=== PATIENT | male | born 1955 | race Caucasian/White ===

== ENCOUNTER 2021-11-25 10:14 | Emergency (ER) | payer SELFPAY ==
--- NOTE | ~2021-11-25 | CT_ITS ---
EXAMINATION: CT soft tissue neck w con DATE: 11/25/2021 13:28 INDICATION: Submandibular swelling secondary to dental abscess. TECHNIQUE: Computed tomography (CT) of the neck was performed with 75 mL Omnipaque-350 intravenous co ntrast. Automated exposure control and iterative reconstruction technique were employed. The dose-susu gth product was 519.42 mGy-cm. COMPARISON: None FINDINGS: There are multiple dental restorations. There are couple lucencies with sclerotic margins along the l eft mandible at the site of a couple absent teeth. There is a large peripherally enhancing abscess in the left submandibular/sublingual space which measures 3.2 cm craniocaudally by 4.3 cm left to right and 3.8 cm AP. There are several mildly enlarged bilateral likely reactive submandibular lymph nodes . Orbits are normal. Leftward deviation of the nasal septum. Small amount of bubbly mucus layering de pendently in the right maxillary sinus. Visualized portions of the brain is unremarkable. Bilateral p arotid and submandibular glands are normal. Thyroid gland is normal. No pathologically enlarged cervi yunior lymphadenopathy. Dependent groundglass opacity in the bilateral upper lungs likely related to ate lectasis and expiratory phase of imaging. Moderate to severe cervical spondylosis. IMPRESSION: 1. 4.3 x 3.2 x 3.8 cm peripherally enhancing abscess in the sublingual/left submandibular space with mild likely reactive bilateral submandibular lymphadenopathy. Reviewed, dictated and finalized at location A. IMPRESSION: 1. 4.3 x 3.2 x 3.8 cm peripherally enhancing abscess in the sublingual/left sub mandibular space with mild likely reactive bilateral submandibular lymphadenopa thy.
[2021-11-25 10:22] VITALS: BP 157/95; PULSE 75; RESP 18; TEMP 36.7; O2SAT 97
[2021-11-25 10:40] LABS: Basophils Percent Auto 0.3 % (0.2-1.2); Eosinophils Absolute Auto 0.2 K/mm3 (0-0.3); Eosinophils Percent Auto 1.8 % (0-4.4); Hematocrit 42.5 % (42.0-52.0); Hemoglobin 13.9 g/dL (14.0-18.0); Immature Granulocyte Absolute 0.06 K/mm3 (0.00-0.031); Immature Granulocyte Percent A 0.5 % (0-0.5); Lymphocytes Percent Auto 18.3 % (18.3-44.2); Mean Corpuscular HGB Conc 32.7 g/dl (32-36); Mean Corpuscular Hemoglobin 30.5 pg (26-34); Mean Corpuscular Volume 93.2 fl (80-100); Mean Platelet Volume 9.3 fl (7.4-10.4); Monocytes Absolute Auto 1.3 K/mm3 (0.1-0.6); Monocytes Percent Auto 9.6 % (2.6-8.5); Neutrophils Absolute Auto 9.1 K/mm3 (1.3-6.7); Neutrophils Percent Auto 69.5 % (45.5-73.1); Platelet Count Result 408 k/mm3 (150-375); Red Blood Count 4.56 M/mm3 (4.6-6.20); Red Cell Distribution Width 13.3 % (11.5-14.5); White Blood Count 13.1 K/mm3 (4.5-10.0)
[2021-11-25 10:50] LABS: Anion Gap 8 mmol/L (8-16); Blood Urea Nitrogen 11 mg/dL (9-20); Calcium 9.2 mg/dL (8.4-10.2); Carbon Dioxide 23 mmol/L (22-30); Chloride 103 mmol/L (98-107); Estimated CRCL calculation 79 ml/min; Estimated Glomerular Filt Rate > 60; Glucose 120 mg/dL (65-110); Potassium 4.6 mmol/L (3.4-5.0); Sodium 134 mmol/L (137-145)
[2021-11-25 11:30] VITALS: BP 120/79; PULSE 65; RESP 18; O2SAT 95
--- NOTE | 2021-11-25 11:55 | PC.NURSE ---
pts out to desk to ask if pt was going to be seen by provider. charge hand aware.
--- NOTE | 2021-11-25 12:29 | ED.GENADULT ---
HPI - General Adult General Chief complaint: Dental/Oral Stated complaint: swollen jaw - abscess tooth Time Seen by Provider: 11/25/21 11:18 Source: patient, family and RN notes reviewed Mode of arrival: ambulatory Limitations: no limitations History of Present Illness HPI narrative: 66-year-old male presenting to the emergency department for evaluation of worsening dental pain and facial swelling. Patient followed up with a dentist on Saturday and had an abscessed tooth removed. Patient was started on Augmentin but states that since the removal he has had increased pain and facial swelling. Patient denies any difficulty breathing but does report increased pain with swallowing. Patient is a smoker. Related Data Home Medications Medication Instructions Recorded Confirmed amoxicillin-pot clavulanate 1 tablet PO Q12H 11/25/21 [Augmentin] carvedilol 3.125 mg PO BID 11/25/21 ramipril 2.5 mg PO DAILY 11/25/21 Allergies Allergy/AdvReac Type Severity Reaction Status Date / Time No Known Allergies Allergy Mild Verified 11/25/21 10:25 Review of Systems Review of Systems: CONSTITUTIONAL: Denies fever, chills, or sweats. EYES: Denies visual changes, redness, or discharge. ENT: Increased facial swelling and pain CARDIOVASCULAR: Denies chest pain, palpitations, or edema. RESPIRATORY: Denies cough or dyspnea. GASTROINTESTINAL: Denies abdominal pain, nausea, vomiting, or diarrhea. GENITOURINARY: Denies dysuria or hematuria. SKIN: Denies rash or itching. MUSCULOSKELETAL: Denies back pain, joint pain, or myalgia. NEUROLOGIC: Denies headache, numbness, or weakness. PSYCHIATRIC: Denies anxiety or depression. [facility] Family History Family History (Updated 02/24/19 @ 16:03 by DOCTOR UNKNOWN) Sibling Diabetes mellitus Father Family history of cardiovascular disease Mother Family history of cardiovascular disease Other Family history of arthritis Hypertension Social History Social History Smoking status: Heavy tobacco smoker Second hand tobacco smoke exposure: Yes Alcohol intake: never Exam Narrative: APPEARANCE: Well appearing, no pain, no distress, well-nourished. HEAD: normocephalic, atraumatic. EYES: PERRLA/EOMI, conjunctivae clear. NOSE: Normal no drainage EARS:TMS clear with good light reflex. THROAT: Submandibular swelling and tenderness. Normal posterior pharynx NECK: Supple. No adenopathy, no masses. RESPIRATORY: Airway patent, respirations nonlabored. Clear to auscultation bilaterally, no rales, rhonchi, wheezing. CARDIOVASCULAR: Regular rate and rhythm without murmurs rubs or gallops. SKIN: Warm, dry. Normal Color Course Course Emergency Course: Patient was started on 600 mg of IV clindamycin. Blood culture pending. No ENT on-call for [facility]. Patient prefers to go to [place]. Case was discussed with both the ENT and with the emergency room physician and patient was accepted for transfer to the ED. Patient was updated on the plan for transfer. All questions concerns were addressed. Patient was stable at time of transfer. Vital Signs Vital signs: Vital Signs Temperature 98.0 F 11/25/21 10:22 Pulse Rate 75 11/25/21 10:22 Respiratory Rate 18 11/25/21 10:22 Blood Pressure 157/95 H 11/25/21 10:22 Pulse Oximetry 97 11/25/21 10:22 Temperature 98.0 F 11/25/21 10:22 Pulse Rate 70 11/25/21 15:25 Respiratory Rate 16 11/25/21 15:25 Blood Pressure 121/90 11/25/21 15:25 Pulse Oximetry 97 11/25/21 15:25 Medical Decision Making Vital Signs Vital Signs: Vital Signs Temperature 98.0 F 11/25/21 10:22 Pulse Rate 75 11/25/21 10:22 Respiratory Rate 18 11/25/21 10:22 Blood Pressure 157/95 H 11/25/21 10:22 Pulse Oximetry 97 11/25/21 10:22 Temperature 98.0 F 11/25/21 10:22 Pulse Rate 70 11/25/21 15:25 Respiratory Rate 16 11/25/21 15:25 Blood Pressure 121/90 11/25/21 15:25 Pulse Oximetry 97 11/25/21 15:25 Lab Data Lab
[2021-11-25 12:30] VITALS: BP 144/93; PULSE 68; RESP 17; O2SAT 97
[2021-11-25] MEDS: SODIUM CHLORIDE 0.9% IV 1,000 ML 999 ML IV CONT (12:40)
[2021-11-25] MEDS: HYDROmorphone HCL INJ (*CRX) 1 MG/ML SYR IV PUSH ×2 (12:41→14:49)
[2021-11-25 13:30] VITALS: BP 138/80; PULSE 70; RESP 18; O2SAT 94
[2021-11-25] MEDS: CLINDAMYCIN 600 MG/D5W 50 ML 600 MG/50 ML PIGGYBACK 100 MG IVPB (13:35)
--- NOTE | 2021-11-25 13:36 | PC.NURSE ---
return from ct. pt states pain decreased to 4/10. antiobitic hung.
[2021-11-25 14:30] VITALS: BP 147/82; PULSE 69; RESP 17; O2SAT 92
--- NOTE | 2021-11-25 15:09 | PC.NURSE ---
[place] [facility] 5hr AKHIL Mcmullen Mem - No Truck Fannie No Truck Win No Truck
[2021-11-25 15:15] LABS: SARS-CoV-2 RNA PCR Negative
[2021-11-25 15:25] VITALS: BP 121/90; PULSE 70; RESP 16; O2SAT 97
== END 2021-11-25 15:38 | disposition short-term general hospital (02) ==
PROVIDERS: Emergency Medicine; Emergency Provider Emergency Medicine
DX: K12.2 Cellulitis and abscess of mouth (principal); F17.200 Nicotine dependence, unspecified, uncomplicated; Z20.822 Contact with and (suspected) exposure to COVID-19
CPT/HCPCS: 36415; 70491; 80048; 85025; 87040; 96361; 96365; 96375; 96376; 99285; C9803; J1170; J7030; Q9967; U0003; U0005

== ENCOUNTER 2023-05-13 13:48 | Outpatient (CLI) | payer OTHER, SELFPAY ==
[2023-05-13 19:43] LABS: Alanine Aminotransferase 20 U/L (6-50); Albumin Level 4.5 g/dL (3.5-5.1); Alkaline Phosphatase 81 U/L (38-126); Anion Gap 8 mmol/L (8-16); Aspartate Amino Transferase 34 U/L (17-59); Bilirubin,Total 0.6 mg/dL (0.2-1.3); Blood Urea Nitrogen 9 mg/dL (9-20); Calcium 9.4 mg/dL (8.4-10.2); Carbon Dioxide 28 mmol/L (22-30); Chloride 102 mmol/L (98-107); Cholesterol 205 mg/dL (0-200); Estimated Glomerular Filt Rate > 60; Glucose 96 mg/dL (65-110); HDL Direct 27 mg/dL; Potassium 3.9 mmol/L (3.4-5.0); Sodium 138 mmol/L (137-145); Triglycerides 226 mg/dL (<150)
[2023-05-13 19:54] LABS: LDL Cholesterol Direct 136 mg/dL
[2023-05-13 20:12] LABS: Prostate Specific Antigen 0.5 ng/mL (< OR = 4.0)
== END 2023-05-13 13:49 | disposition home or self-care (01) ==
LOC: ANHGOSHLAB 13:49
PROVIDERS: PCP Family Medicine; Visit Provider Family Medicine
DX: Z12.5 Encounter for screening for malignant neoplasm of prostate (principal); Z13.220 Encounter for screening for lipoid disorders; Z13.228 Encounter for screening for other metabolic disorders
CPT/HCPCS: 36415; 80053; 80061; 84153; G0103

== ENCOUNTER 2023-09-20 13:12 | Outpatient (CLI) | payer MEDICARE, SELFPAY ==
--- NOTE | ~2023-09-20 | US_ITS ---
EXAMINATION: US aorta [facility] DATE: 09/20/2023 14:02 INDICATION: Encounter for screening for cardiovascular disorders . Nicotine dependence. TECHNIQUE: Grayscale, color Doppler, and pulsed Doppler images of the aorta and common iliac arteries were obtained. COMPARISON: None. FINDINGS: Region of the proximal aorta is obscured. The mid aorta measures 2.2 cm. The distal aorta measures 1. 9 cm. The right common iliac artery measures 8 mm. The left common iliac artery measures 8 mm. IMPRESSION: 1. Normal caliber abdominal aorta. Reviewed, dictated and finalized at location A. SIFIER OPERATOR
--- NOTE | ~2023-09-20 | CT_ITS ---
CT Scan of the Chest without Contrast: Clinical Indication: Lung cancer screening, current smoker Technique: Contiguous sections were acquired throughout the chest without intravenous contrast. Dose reduction technique was used on this scan by utilizing automated exposure control and iterative recon struction technique. The dose-length product (DLP) was 225.25 mGy-cm. Findings: There is no evidence of any significant mediastinal, hilar or axillary lymphadenopathy. The mediastin al soft tissues appear normal. There is no evidence of pleural or pericardial effusion. There are multiple subcentimeter groundglass nodules scattered in the upper lobes. Images through the upper abdomen reveal no abnormalities. Impression: Lung RADS 2: Benign appearance. [address] advised. Reviewed, dictated and finalized at location . NG VALIDATOR Impression: Lung RADS 2: Benign appearance. [address] advised.
== END 2023-09-20 13:13 | disposition home or self-care (01) ==
PROVIDERS: PCP Family Medicine; Visit Provider Family Medicine
DX: Z12.2 Encounter for screening for malignant neoplasm of respiratory organs (principal); F17.210 Nicotine dependence, cigarettes, uncomplicated; Z13.6 Encounter for screening for cardiovascular disorders
CPT/HCPCS: 71271; 76706

== ENCOUNTER 2024-02-20 07:45 | Outpatient (CLI) | payer MEDICARE, SELFPAY ==
--- NOTE | ~2024-02-20 | CT_ITS ---
Non-contrast CT scan of the Abdomen and Pelvis Clinical indication: Abdominal hernia Technique: 2.5 mm axial scans were obtained through the abdomen and pelvis without intravenous or or al contrast. Dose reduction technique was used on this scan by utilizing automated exposure control a nd iterative reconstruction technique. The dose-length product (DLP) was 1008.39 mGy-cm. Findings: Images through the lung bases reveal no abnormalities. There is no evidence of renal or ureteral calculi. The kidneys and the ureters are nondilated. The liver, spleen, pancreas, gallbladder, and adrenals appear normal.. There are atherosclerotic calc ifications of the aorta. There is no evidence of bowel obstruction. Images through the pelvis were performed. There is no evidence of ascites or lymphadenopathy. Urinary bladder unremarkable. No pelvic mass seen. No ascites. Impression: No hernia identified. No significant abnormality seen. Reviewed, dictated and finalized at [facility]. Impression: No hernia identified. No significant abnormality seen.
== END 2024-02-20 07:46 | disposition home or self-care (01) ==
PROVIDERS: PCP Family Medicine; Visit Provider Family Medicine
DX: K46.9 Unspecified abdominal hernia without obstruction or gangrene (principal)
CPT/HCPCS: 74176

== ENCOUNTER 2024-03-24 01:54 | Day surgery (SDC) | payer MEDICARE, SELFPAY ==
[2024-03-04 14:22] VITALS: BMI 31.5
[2024-03-24 10:32] VITALS: BP 131/71; PULSE 70; RESP 20; TEMP 36.1; O2SAT 97; BMI 30.9
[2024-03-24] MEDS: LACTATED RINGERS 1,000 ML 150 ML IV CONT (10:41)
--- NOTE | 2024-03-24 11:24 | WPDANESEPPF ---
Anes - Initial Pre Proc Eval Procedure: Operation Date: 03/24/24 11:30 Proposed Procedures p Esophagogastroduodenoscopy - Patrice King MD Date/Time: 03/24/24 11:24 Surgeon: Patrice King MD Pre Op Diagnosis: Dysphagia, unspecified Patient Data Age: 68 Gender: M Height: 1.75 m Weight: 94.9 kg Last Vital Signs Temp 97 F L 03/24/24 10:32 Pulse 70 03/24/24 10:32 Resp 20 03/24/24 10:32 BP 131/71 03/24/24 10:32 Pulse Ox 97 03/24/24 10:32 O2 Del Method Room Air 03/24/24 10:32 Allergies Allergy/AdvReac Type Severity Reaction Status Date / Time No Known Allergies Allergy Mild Verified 03/24/24 10:31 Home Medications Medication Instructions Recorded Confirmed Type carvedilol 3.125 mg tablet 3.125 mg PO BID 11/25/21 03/04/24 History ramipril 2.5 mg tablet 2.5 mg PO DAILY 11/25/21 03/04/24 History atorvastatin 20 mg tablet 20 mg PO DAILY #90 tabs 11/20/23 03/04/24 Rx tiotropium bromide 18 mcg capsule 1 cap inhalation DAILY #60 02/11/24 03/04/24 Rx with inhalation device inhalations Patient hx anesthesia problems: none Family hx anesthesia problems: none Results Review: All pre-operative results and documents have been reviewed as part of the pre-operative evaluation. [facility] Family History Family History Sibling Diabetes mellitus Father Family history of cardiovascular disease Mother Family history of cardiovascular disease Other Family history of arthritis Hypertension Social History Social History Years smoked: 50 Smoking status: Current every day smoker Tobacco type: cigarettes Second hand tobacco smoke exposure: Yes Additional smoking assessment comments: pt smokes 1pk per day Alcohol intake: never Substance use: never Substance use type: does not use Do You Feel Safe in your Home?: Yes Lack of Transportation: No Lack of Food: Never True Current Housing: I Have Housing Concerned About Future Housing: No Difficulty Paying Gas/Electric Bills: No Currently Unemployed: No Education: Trade/Vocational Certificate Difficulty w/ Childcare or Family Care: No Living arrangements: with family Occupation/Education: retired Gender identity (if verbalized by the patient): Male Sexual Orientation (if Verbalized by the Patient): Straight or Heterosexual Spiritual care concerns: No Agree to blood products: Yes Anes - Eval Final PreProcedure Day of Procedure 03/24/24 11:24 Patient weight: obese Heart: regular rate and rhythm Lungs: clear to auscultation Airway: Mallampati scale class II Neurological: alert and oriented Last oral intake: >/= 8 hours ASA classification: III Emergent: no Anesthetic plan: proceed Anesthesia type and monitoring: general GIVS and standard monitoring Results Review: All pre-operative results and documents have been reviewed as part of the pre-operative evaluation. Informed Consent: The patient's anesthetic plan and its attendant risks and benefits were discussed with the patient/family/POA. Questions were solicited and answers provided to the satisfaction of the patient/family/POA.
--- NOTE | 2024-03-24 11:26 | PM.HPGS ---
History of Present Illness History of Present Illness Consent: Risks, benefits, and alternatives have been discussed and questions answered. Patient agrees to proceed with procedure. Chief complaint: Dysphagia, unspecified Narrative: Yobany Haddad is a 68 year old male with dysphagia to both solids and liquids for several months but getting worse, never had egd Review of Systems Review of Systems: All systems reviewed & are unremarkable except as noted in HPI and below PMFSH Past Medical History Medical History (Updated 03/24/24 @ 11:26 by Patrice King MD) Dysphagia Family History Family History Sibling Diabetes mellitus Father Family history of cardiovascular disease Mother Family history of cardiovascular disease Other Family history of arthritis Hypertension Social History Social History Years smoked: 50 Smoking status: Current every day smoker Tobacco type: cigarettes Second hand tobacco smoke exposure: Yes Additional smoking assessment comments: pt smokes 1pk per day Alcohol intake: never Substance use: never Substance use type: does not use Do You Feel Safe in your Home?: Yes Lack of Transportation: No Lack of Food: Never True Current Housing: I Have Housing Concerned About Future Housing: No Difficulty Paying Gas/Electric Bills: No Currently Unemployed: No Education: Trade/Vocational Certificate Difficulty w/ Childcare or Family Care: No Living arrangements: with family Occupation/Education: retired Gender identity (if verbalized by the patient): Male Sexual Orientation (if Verbalized by the Patient): Straight or Heterosexual Spiritual care concerns: No Agree to blood products: Yes Meds Home Medications and Allergies Home Medications Medication Instructions Recorded Confirmed Type carvedilol 3.125 mg tablet 3.125 mg PO BID 11/25/21 03/04/24 History ramipril 2.5 mg tablet 2.5 mg PO DAILY 11/25/21 03/04/24 History atorvastatin 20 mg tablet 20 mg PO DAILY #90 tabs 11/20/23 03/04/24 Rx tiotropium bromide 18 mcg capsule 1 cap inhalation DAILY #60 02/11/24 03/04/24 Rx with inhalation device inhalations Allergies Allergy/AdvReac Type Severity Reaction Status Date / Time No Known Allergies Allergy Mild Verified 03/24/24 10:31 Vital Signs Vital Signs - 24 hr 03/24/24 10:32 Temperature 97 F L Pulse Rate 70 Respiratory Rate 20 Blood Pressure 131/71 Pulse Oximetry 97 Oxygen Delivery Room Air Exam Const: General: comfortable and no acute distress HENMT: Face/Nose/Sinus: Normal nares present Eyes: General: appearance normal, both eyes and all related structures Neck: Neck: no JVD Resp: Auscultation: clear to auscultation bilaterally Cardio: Rate: regular rate Rhythm: regular rhythm GI: Inspection: non-distended GI Palp: Yes Soft to palpation Skin: General skin exam: normal color Neuro: General: gait normal Speech: normal speech Extrem: General: normal to inspection Psych: Mental Status: mental status grossly normal Assessment and Plan Assessment and plan (1) Dysphagia: Code(s): R13.10 - Dysphagia, unspecified Status: Acute Assessment and Plan: egd
[2024-03-24 11:43] VITALS: BP 131/79; PULSE 64; RESP 26; O2SAT 97
[2024-03-24 11:53] VITALS: BP 150/81; PULSE 70; RESP 24; O2SAT 98
[2024-03-24 12:03] VITALS: BP 133/78; PULSE 61; RESP 26; O2SAT 98
== END 2024-03-24 12:10 | disposition home or self-care (01) ==
PROVIDERS: PCP Family Medicine; Visit Provider Internal Medicine Gastroenterology
PROC: 0DJ08ZZ Inspection of Upper Intestinal Tract, Via Natural or Artificial Opening Endoscopic (ICD-10-PCS; CPT 43235; principal; 2024-03-24 11:30)
DX: K22.2 Esophageal obstruction (principal); K31.89 Other diseases of stomach and duodenum; K44.9 Diaphragmatic hernia without obstruction or gangrene; F17.210 Nicotine dependence, cigarettes, uncomplicated; E66.9 Obesity, unspecified; Z68.30 Body mass index [BMI] 30.0-30.9, adult; Z82.49 Family history of ischemic heart disease and other diseases of the circulatory system
CPT/HCPCS: 43249; 43239; 88305; C1726; J2704; J7120

== ENCOUNTER 2024-04-01 08:51 | Outpatient (CLI) | payer MEDICARE, SELFPAY ==
--- NOTE | ~2024-04-01 | US_ITS ---
US arterial ankle brachial ind INDICATION: Atherosclerosis. TECHNIQUE: Segmental pressures and plethysmographic and Doppler waveforms of the brachial and lower e xtremity arteries were obtained. COMPARISON: None. FINDINGS: Right and left brachial artery pressures of 123 mm Hg and 127 mm Hg, respectively, are concordant (no rmal difference <= 30 mmHg). The right ankle-brachial index (HERI) is 23 (normal >= 0.9-1.0). The right great toe-brachial index (T BI) is 0.34 (normal >= 0.60). The left HERI is 0.67. The left TBI is 0.36. IMPRESSION: 1. Diminished bilateral ankle and toe brachial indices consistent with mild-moderate peripheral arter ial disease bilaterally. Reviewed, dictated and finalized at location B. IMPRESSION: 1. Diminished bilateral ankle and toe brachial indices consistent with mild-mod erate peripheral arterial disease bilaterally.
== END 2024-04-01 08:52 | disposition home or self-care (01) ==
PROVIDERS: PCP Family Medicine; Visit Provider Family Medicine
DX: I73.9 Peripheral vascular disease, unspecified (principal); R25.2 Cramp and spasm; I25.10 Atherosclerotic heart disease of native coronary artery without angina pectoris
CPT/HCPCS: 93922

== ENCOUNTER 2024-07-30 10:00 | Outpatient (RCR) | payer MEDICARE, SELFPAY | END 2024-07-30 11:04 | disposition home or self-care (01) | LOC: ANHCPREHAB 10:00 | PROVIDERS: PCP Family Medicine; Visit Provider Family Medicine | DX: I70.213 Atherosclerosis of native arteries of extremities with intermittent claudication, bilateral legs (principal) | CPT/HCPCS: 93668; 93798 ==

== ENCOUNTER 2025-02-02 11:26 | Outpatient (CLI) | payer MEDICARE, SELFPAY ==
--- OUTSIDE RECORDS SUMMARY | 2025-02-02 11:29 | XMS_ITS | Referral Summary ---
Author Organization [facility] [address] Address [address] [place] [address] Care Team Providers Care Casing Trimmer Name Role Phone AdiCresencio kothari Primary Care Provider [phone] Allergies No known active allergies Medications carvediloL (COREG) 3.125 mg tablet TAKE 1 TABLET BY MOUTH TWICE DAILY WITH MEALS 180 tablet 3 0 Active ramipriL (ALTACE) 2.5 mg capsule TAKE 1 CAPSULE BY MOUTH EVERY DAY 90 capsule 2 2 Active acetaminophen 500 mg capsule Take 2 capsules (1,000 mg total) by mouth every 6 (six) hours 2 Active oxyCODONE (ROXICODONE) 5 mg immediate release tabletIndicatio ns:Pain Take 1 tablet (5 mg total) by mouth every 4 (four) hours as needed (Pain not relieved by tylenol) 10 tablet 2 Active Additional Information Patient not taking.Reported on 08/17/2024 aspirin 81 mg enteric coated tablet Take 1 tablet (81 mg total) by mouth daily Active atorvastatin (LIPITOR) 20 mg tablet Take 1 tablet (20 mg total) by mouth daily Active Active Problems Problem Noted Date Diagnosed Date Dental abscess 11/26/2021 Neck abscess 11/25/2021 LBBB (left bundle branch block) 05/07/2017 Dilated cardiomyopathy 05/07/2017 Social History Tobacco Use Types Packs/Day Years Used Date Smoking Tobacco: Every Day Cigarettes Smokeless Tobacco: Never Tobacco Cessation:Ready to Q uit: Not Asked; Counseling Given: Not Answered Comments:Smoking History Packs/day: 1 Packs Alcohol Use Standard Drinks/Week Comments No 0 (1 standard drink = 0.6 oz pur e alcohol) Sex and Gender Information Value Date Recorded Sex Assigned at Not on file Legal Sex Male 3:08 AM DELIVERY AIDE Gender Identity Not on file Sexual Orientation Not on file Last Filed Vital Signs Vital Sign Reading Time Taken Comments Blood Pressure 150/78 08/17/2024 8:39 AM DELIVERY AIDE Pulse 100 08/17/2024 8:39 AM DELIVERY AIDE Temperature 36.4 C (97.52 F) 11/29/2021 7:50 AM CDT Respiratory Rate 15 11/29/2021 7:50 AM CDT Oxygen Saturation 96% 08/17/2024 8:39 AM DELIVERY AIDE Inhaled Oxygen Concentration - - Weight 98.3 kg (216 lb 11.2 oz) 08/17/2024 8:39 AM DELIVERY AIDE Height 172.7 cm (5' 8) 08/17/2024 8:39 AM DELIVERY AIDE Body Mass Index 32.95 08/17/2024 8:39 AM DELIVERY AIDE Plan of Treatment Not on file Insurance [id number] [employer] MEDICARE HMO Advance Directives For more information, please contact: [phone] * Full Code (Latest Code Status on File) Date Activated Date Inactivated Comments 11/26/2021 5:24 AM 11/29/2021 5:47 PM Care Teams Casing Trimmer Relationship Specialty Start Date End Date Cresencio Ballesteros DO PCP - General Family Medicine 01/24/23
--- OUTSIDE RECORDS SUMMARY | 2025-02-02 11:29 | XMS_ITS | Clinical Summary ---
Author Organization [facility] [place] [address] Address [address] [place] [address] Care Team Providers Care Packing Machine Inspector Name Role Phone Adisaniya Cresencio ZHOU Primary Care Provider [phone] Allergies No known active allergies Medications carvediloL [...] bundle branch block) 05/07/2017 Dilated cardiomyopathy 05/07/2017 Family History Medical History Relation Name Comments Coronary artery disease Father 2 Walter nary Artery Bypass Graft; Heart attack Father 2 Myocardial Infa rction; Stroke Maternal Grandfather 2 Strok e; Heart attack Mother 2 Myocardial Infa rction; Stent Mother 2 Coronary Stent Placement; Relation Name Status Comments Father 1 Alive Father 2 Maternal Grandfather 1 Alive Maternal Grandfather 2 Mother 1 Alive Mother 2 Social History Tobacco Use Types Packs/Day Years [...] on file Legal Sex Male 3:08 AM CUSTOMER EXPERIENCE RETAIL CLERK Gender Identity Not on file Sexual Orientation Not on file Obstetrics History Last Filed Vital Signs Vital Sign Reading Time Taken Comments Blood Pressure 150/78 08/17/2024 8:39 AM CUSTOMER EXPERIENCE RETAIL CLERK Pulse 100 08/17/2024 8:39 AM CUSTOMER EXPERIENCE RETAIL CLERK Temperature 36.4 C (97.52 F) 11/29/2021 7:50 AM CDT Respiratory Rate 15 11/29/2021 7:50 AM CDT Oxygen Saturation 96% 08/17/2024 8:39 AM CUSTOMER EXPERIENCE RETAIL CLERK Inhaled Oxygen Concentration - - Weight 98.3 kg (216 lb 11.2 oz) 08/17/2024 8:39 AM CUSTOMER EXPERIENCE RETAIL CLERK Height 172.7 cm (5' 8) 08/17/2024 8:39 AM CUSTOMER EXPERIENCE RETAIL CLERK Body Mass Index 32.95 08/17/2024 8:39 AM CUSTOMER EXPERIENCE RETAIL CLERK Plan of Treatment Health Maintenance Due Date Last Done Comments Colon Cancer Screening-Colonoscopy 1957 Depression Screening 1957 Hepatitis C Screening 1957 Prostate Cancer Screening-PSA 1957 DTaP/Tdap/Td Vaccine (1 - Tdap) 1968 Hepatitis B Screening 1975 Pneumococcal vaccine 65+ (1 of 2 - PCV) 1976 Zoster Vaccine (1 of 2) 2007 Abdominal Aortic Aneurysm (AAA) Screen 2022 Well Visit 65+ 2022 Fall Risk Assessment 11/29/2022 11/29/2021 Influenza Vaccine (Season Ended) [id number] [place] [address] MEDICARE HMO Advance Directives For more information, please contact: [phone] * Full Code (Latest Code Status on File) Date Activated Date Inactivated Comments 11/26/2021 5:24 AM 11/29/2021 5:47 PM Care Teams Packing Machine Inspector Relationship Specialty Start Date End Date Cresencio Ballesteros DO PCP - General Family Medicine 01/24/23
[2025-02-02 16:57] LABS: Hematocrit 46.8 % (42.0-52.0); Hemoglobin 15.1 g/dL (14.0-18.0); Immature Granulocyte Percent A 0.3 % (0-0.5); Lymphocytes Absolute Auto 3.29 K/mm3 (0.9-3.2); Mean Corpuscular HGB Conc 32.3 g/dl (32-36); Mean Corpuscular Hemoglobin 30.8 pg (26-34); Mean Corpuscular Volume 95.3 fl (80-100); Nucleated Red Blood Cells Absolute Auto 0.000 K/mm3 (0.0-0.012); Nucleated Red Blood Cells Perc 0.0 % (0.0-0.2); Platelet Count Result 298 k/mm3 (150-375); Red Blood Count 4.91 M/mm3 (4.6-6.20); White Blood Count 10.1 K/mm3 (4.5-10.0)
== END 2025-02-02 11:27 | disposition home or self-care (01) ==
LOC: ANHGOSHLAB 11:27
PROVIDERS: PCP Internal Medicine; Visit Provider Internal Medicine
DX: D72.829 Elevated white blood cell count, unspecified (principal)
CPT/HCPCS: 36415; 85025

== ENCOUNTER 2025-02-15 09:19 | Outpatient (CLI) | payer MEDICARE, SELFPAY ==
--- NOTE | ~2025-02-15 | CT_ITS ---
CT Scan of the Chest without Contrast: Clinical Indication: Lung cancer screening, nicotine dependence Technique: Contiguous sections were acquired throughout the chest without intravenous contrast. Dose reduction technique was used on this scan by utilizing automated exposure control and iterative recon struction technique. The dose-length product (DLP) was 188.87 mGy-cm. COMPARISON: 09/20/2023 Findings: There is no evidence of any significant mediastinal, hilar or axillary lymphadenopathy. The mediastin al soft tissues appear normal. There is no evidence of pleural or pericardial effusion. The lungs are clear. No pulmonary nodules or infiltrates are noted. Images through the upper abdomen reveal no abnormalities. Impression: Lung RADS 1: Negative. [address] advised. Reviewed, dictated and finalized at location . Impression: Lung RADS 1: Negative. [address] advised.
== END 2025-02-15 09:20 | disposition home or self-care (01) ==
LOC: MICIMG 09:20
PROVIDERS: PCP Internal Medicine; Visit Provider Internal Medicine
DX: Z12.2 Encounter for screening for malignant neoplasm of respiratory organs (principal); Z87.891 Personal history of nicotine dependence
CPT/HCPCS: 71271

== ENCOUNTER 2025-02-19 08:04 | Outpatient (CLI) | payer MEDICARE, SELFPAY ==
--- OUTSIDE RECORDS SUMMARY | 2025-02-19 08:08 | XMS_ITS | Referral Summary ---
Author Organization [facility] [place] [address] Address [address] [place] [address] Care Team Providers Care Anode Worker Name Role Phone AdiCresencio kothari Primary Care Provider [phone] Allergies No known active allergies Medications carvediloL [...] on file Legal Sex Male 3:08 AM MANAGER CAR Gender Identity Not on file Sexual Orientation Not on file Last Filed Vital Signs Vital Sign Reading Time Taken Comments Blood Pressure 150/78 08/17/2024 8:39 AM MANAGER CAR Pulse 100 08/17/2024 8:39 AM MANAGER CAR Temperature 36.4 C (97.52 F) 11/29/2021 7:50 AM CDT Respiratory Rate 15 11/29/2021 7:50 AM CDT Oxygen Saturation 96% 08/17/2024 8:39 AM MANAGER CAR Inhaled Oxygen Concentration - - Weight 98.3 kg (216 lb 11.2 oz) 08/17/2024 8:39 AM MANAGER CAR Height 172.7 cm (5' 8) 08/17/2024 8:39 AM MANAGER CAR Body Mass Index 32.95 08/17/2024 8:39 AM MANAGER CAR Plan of Treatment Not on file Insurance [id number] [employer] MED[employer] HMO Advance Directives For more information, please contact: [phone] * Full Code (Latest Code Status on File) Date Activated Date Inactivated Comments 11/26/2021 5:24 AM 11/29/2021 5:47 PM Care Teams Anode Worker Relationship Specialty Start Date End Date Cresencio Ballesteros DO PCP - General Family Medicine 01/24/23
--- OUTSIDE RECORDS SUMMARY | 2025-02-19 08:08 | XMS_ITS | Clinical Summary ---
Author Organization [facility] [address] Address [address] [place] [address] Care Team Providers Care Category Director Name Role Phone Adisaniya Cresencio ZHOU Primary Care Provider [phone] Allergies No known active allergies Medications carvediloL [...] on file Legal Sex Male 3:08 AM STUDIO [employer] Gender Identity Not on file Sexual Orientation Not on file Obstetrics History Last Filed Vital Signs Vital Sign Reading Time Taken Comments Blood Pressure 150/78 08/17/2024 8:39 AM STUDIO HAND Pulse 100 08/17/2024 8:39 AM STUDIO HAND Temperature 36.4 C (97.52 F) 11/29/2021 7:50 AM CDT Respiratory Rate 15 11/29/2021 7:50 AM CDT Oxygen Saturation 96% 08/17/2024 8:39 AM STUDIO HAND Inhaled Oxygen Concentration - - Weight 98.3 kg (216 lb 11.2 oz) 08/17/2024 8:39 AM STUDIO HAND Height 172.7 cm (5' 8) 08/17/2024 8:39 AM STUDIO HAND Body Mass Index 32.95 08/17/2024 8:39 AM STUDIO HAND Plan of Treatment Health Maintenance Due Date [...] Fall Risk Assessment 11/29/2022 11/29/2021 Influenza Vaccine (#1) 2025 Insurance [id number] [place] [address] MEDICARE HMO Advance Directives For more information, please contact: [phone] * Full Code (Latest Code Status on File) Date Activated Date Inactivated Comments 11/26/2021 5:24 AM 11/29/2021 5:47 PM Care Teams Category Director Relationship Specialty Start Date End Date Cresencio Ballesteros DO PCP - General Family Medicine 01/24/23
--- NOTE | 2025-02-19 12:53 | P.PCNPFT_ITS ---
PFT Procedure Performed PFT Procedure Performed Plethysmography (Lung Vol) Diffusing Cap (DLCO) Flow Vol Loop Spirometry w/o Bronchodil PFT Interpretation This is a pulmonary function test with pre and post-bronchodilator spirometry, plethysmography and diffusing capacity. The test was performed and results interpreted in accordance with the 2019 and 2005 ATS/ERS Task Force guidelines respectively using the Global Lung Function Initiative-2012 reference equations. Patient demonstrated good effort and c ooperation. Reproducibility criteria were met. The quality of the pre bronchodilator spirometry maneuver was Grade A and post bronchodilator spirometry maneuver was Grade A. Findings: Spirometry: There is decreased maximal expiratory airflow at low lung volumes with concave expiratory flow tracing. The contour the inspiratory flow tracing is truncated. The FVC is 3.72 L, 91% predicted. The FEV1 is 2.63 L, 84% predicted. The FEV1: FVC ratio 71%. Plethysmography: The total lung capacity is 6.19 L, 93% predicted. The functional residual capacity is 2.80 L, 80% predicted. The residual volume is 2.23 L, 98% predicted. Diffusing capacity: The diffusing capacity unadjusted for hemoglobin and carboxyhemoglobin is 17.8, 69% predicted. The diffusing capacity adjusted for alveolar volume is 3.72, 90% predicted. Impression: The spirometry is normal without evidence of an obstructive abnormality. There is no significant improvement after inhaling a single dose of albuterol. The diffusing capacity unadjusted for hemoglobin and carboxyhemoglobin is mildly decreased and normalizes when adjusted for alveolar volume. There are no prior studies for comparison
== END 2025-02-19 08:05 | disposition home or self-care (01) ==
PROVIDERS: PCP Internal Medicine; Visit Provider Internal Medicine
DX: R06.00 Dyspnea, unspecified (principal); F17.210 Nicotine dependence, cigarettes, uncomplicated
CPT/HCPCS: 94375; 94726; 94729